=== PATIENT | female | born 1965 | race Caucasian/White ===

== ENCOUNTER 2018-10-03 09:28 | Emergency (ER) | payer OTHER ==
[~2018-10-03] VITALS: Ht 160 cm; Wt 59.0 kg
[2018-10-03] MEDS ORDERED: IBUPROFEN 600MG TABLET PO ONE (10:30)
[2018-10-03 11:00] VITALS: BP 121/57
== END 2018-10-03 11:34 | disposition home or self-care (01) ==
LOC: ER 09:28
DX: S20.211A Contusion of right front wall of thorax, initial encounter (principal); M54.5 Low back pain; R03.0 Elevated blood-pressure reading, without diagnosis of hypertension; W20.8XXA Other cause of strike by thrown, projected or falling object, initial encounter; Y93.H9 Activity, other involving exterior property and land maintenance, building and construction; Y92.017 Garden or yard in single-family (private) house as the place of occurrence of the external cause
CPT/HCPCS: 71111; 99283